=== PATIENT | male | born 1985 | race Two or more races ===

== ENCOUNTER → 2017-10-31 | Outpatient (CLI) | payer OTHER | END | disposition home or self-care (01) | LOC: NUCLEAR 09:16 | DX: M06.4 Inflammatory polyarthropathy (principal) | CPT/HCPCS: 78315; A9503 ==

== ENCOUNTER 2020-11-20 22:55 | Emergency (ER) | payer OTHER ==
[~2020-11-20] VITALS: Ht 170.2 cm; Wt 68.0 kg
[2020-11-21] MEDS ORDERED: AMOX-CLAV 875-1 EACH PO (01:32)
[2020-11-21] MEDS ORDERED: KETO10TA2 PO (01:32)
[2020-11-21] MEDS ORDERED: INTESTINEX680 M1 PO (01:32)
== END 2020-11-21 03:14 | disposition home or self-care (01) ==
LOC: ER 22:55
DX: S60.572A Other superficial bite of hand of left hand, initial encounter (principal); W54.0XXA Bitten by dog, initial encounter; Y93.89 Activity, other specified; Y92.098 Other place in other non-institutional residence as the place of occurrence of the external cause; Y99.8 Other external cause status

== ENCOUNTER 2022-08-26 17:33 | Outpatient (CLI) | payer OTHER ==
[~2022-08-26 17:33] MED LIST: ACETAMINOPHEN650 M2; AMOX-CLAV 875-1 EACH PO; INTESTINEX680 M1 PO; KETO10TA2 PO
== END 2022-08-26 17:35 | disposition home or self-care (01) ==
LOC: LAB 17:33
PROVIDERS: ATTEND Obstetrics & Gynecology
DX: Z20.828 Contact with and (suspected) exposure to other viral communicable diseases (principal); Z20.818 Contact with and (suspected) exposure to other bacterial communicable diseases

== ENCOUNTER 2022-10-11 15:39 | Emergency (ER) | payer OTHER ==
[~2022-10-11] VITALS: Ht 165.1 cm; Wt 68.0 kg
[2022-10-11] MEDS ORDERED: FAMOTIDINE40 MG PO (16:03)
[2022-10-11] MEDS ORDERED: FLUCONAZOLE100 MG PO (16:03)
== END 2022-10-11 18:09 | disposition home or self-care (01) ==
LOC: ER 15:39
DX: K29.70 Gastritis, unspecified, without bleeding (principal); R07.9 Chest pain, unspecified